=== PATIENT | female | born 1930 | race Hispanic/Latino ===

== ENCOUNTER 2017-01-12 10:56 | Day surgery (SDC) | payer MEDICARE, OTHER ==
[2017-01-12] MEDS ORDERED: IOPIDINE OD ONE (11:45)
[2017-01-12] MEDS ORDERED: AK-Dilate OD ONE (11:46)
[2017-01-12] MEDS ORDERED: MYDRIACYL OD ONE (11:46)
[2017-01-12 13:42] VITALS: BP 160/80
== END 2017-01-12 12:28 | disposition home or self-care (01) ==
LOC: OR 10:56
PROVIDERS: ATTEND Ophthalmology
DX: H26.491 Other secondary cataract, right eye (principal)